=== PATIENT | male | born 1940 | race African-American/Black ===

== ENCOUNTER 2021-01-25 01:46 | Inpatient (IN) ==
[2021-01-25] MEDS ORDERED: ONDANSETRON 4 MG/2 ML VIAL IV STA (05:12)
[2021-01-25] MEDS ORDERED: MORPHINE 2 MG/1 ML SYRINGE IV STA (05:12)
[2021-01-25] MEDS ORDERED: SODIUM CHLORIDE 0.9% 1,000 ML IV STA (05:12)
[2021-01-25 06:24] LABS: Basophils % 0.3 % (0.0-0.8); Eosinophils % 0.1 % (0.00-10.9); Immature Granulocytes % 0.3 %; Immature Granulocytes Absolute 0.03 #; Lymphocytes # 0.6 10*3/uL (1.4-4.0); Lymphocytes % 5.2 % (21.2-54.2); Mean Corpuscular HGB Conc 33.3 GM/DL (32-36); Mean Corpuscular Volume 92.8 FL (87-102); Mean Platelet Volume 8.8 FL (9.6-12.0); Monocytes % 6.1 % (1.7-12.7); Platelet Count 249 T/CUMM (130-400); Red Blood Count 4.85 MC/CUMM (3.8-5.5); Red Cell Distribution Width 12.8 % (9.3-17.3); White Blood Count 11.2 T/CUMM (4-12)
[2021-01-25 06:51] LABS: Band Neutrophils 33 % (0-10); Lymphocytes 6 % (20-55); Metamyelocytes 1 %; Platelet Estimate Normal; Segmented Neutrophils 53 % (50-85); Total Cells Counted 100
[2021-01-25 06:52] LABS: Macrocytosis Slight
[2021-01-25 07:01] LABS: Alanine Aminotransferase 20 U/L (16-61); Albumin 3.3 G/DL (3.4-5.0); Alkaline Phosphatase 66 U/L (45-117); Aspartate Amino Transferase 16 U/L (0-37); Blood Urea Nitrogen 12 MG/DL (7-18); Calcium 9.2 MG/DL (8.5-10.1); Carbon Dioxide 28 MMOL/L (21-32); Estimated Glom Filtration Rate 111 ML/MIN; Glucose 140 MG/DL (74-106); Osmolality,Calculated 269.2 MOS/KG (273-304); Potassium 2.8 MMOL/L (3.5-5.1); Sodium 134 MMOL/L (136-145); Total Protein 7.7 G/DL (6.4-8.2)
[2021-01-25 08:30] LABS: Bilirubin,Urine Negative (Negative); Blood, Urine Large mg/dL (Negative); Glucose,Urine (UA) Negative (Negative); Ketones,Urine Negative (Negative); Mucus,Urine Occasional /LPF (Occasional); Nitrite,Urine Negative (Negative); Protein,Urine 30 MG/DL; RBC,Urine 102 /HPF (0-4); Urine Appearance Slightly Hazy (Clear); Urine Color Yellow (Yellow); Urine Specific Gravity 1.042 (1.001-1.035); Urine Urobilinogen < 2.0 EU/DL (<2.0)
[2021-01-25] MEDS ORDERED: GLUCAGON 1 MG VIAL IM PRN (09:21)
[2021-01-25] MEDS ORDERED: ONDANSETRON 4 MG/2 ML VIAL IV PRN (09:21)
[2021-01-25] MEDS ORDERED: ACETAMINOPHEN 325 MG TABLET PO PRN (09:21)
[2021-01-25] MEDS ORDERED: DEXTROSE 50% 25 GM/50 ML SYRINGE IV PRN (09:21)
[2021-01-25] MEDS ORDERED: ZALEPLON 5 MG CAPSULE PO PRN (09:38)
[2021-01-25] MEDS ORDERED: POTASSIUM CHLORIDE RIDER 10 MEQ/100 ML PREMIX IV PRN (09:51)
[2021-01-25] MEDS: SODIUM CHLOR 0.9% KCL 40 MEQ 40 MEQ/1,000 ML BAG IV SCH ×2 (10:48→20:25)
[2021-01-25] MEDS: ENOXAPARIN 40 MG/0.4 ML SYRINGE SUBCUT SCH (10:48)
[2021-01-25] MEDS: hydrALAZINE 20 MG/1 ML VIAL IV PRN (16:13)
[2021-01-25] MEDS: MORPHINE 2 MG/1 ML SYRINGE IV PRN (16:14)
[2021-01-25] MEDS ORDERED: PHENOL 1.4% THROAT SPRAY 177 ML BOTTLE PO PRN (22:26)
[2021-01-26] MEDS: SODIUM CHLOR 0.9% KCL 40 MEQ 40 MEQ/1,000 ML BAG IV SCH ×4 (04:25→21:55)
[2021-01-26 06:40] LABS: Basophils % 0.3 % (0.0-0.8); Eosinophils # 0.1 10*3/uL (0.0-0.87); Hematocrit 45.2 VOL% (42.0-52.0); Hemoglobin 14.6 GM/DL (14.0-18.0); Immature Granulocytes % 0.1 %; Immature Granulocytes Absolute 0.01 #; Lymphocytes # 1.2 10*3/uL (1.4-4.0); Mean Corpuscular HGB Conc 32.3 GM/DL (32-36); Mean Platelet Volume 9.6 FL (9.6-12.0); Monocytes % 14.6 % (1.7-12.7); Platelet Count 222 T/CUMM (130-400); Red Blood Count 4.71 MC/CUMM (3.8-5.5); Red Cell Distribution Width 13.1 % (9.3-17.3); White Blood Count 7.1 T/CUMM (4-12)
[2021-01-26 06:55] LABS: Calcium 8.3 MG/DL (8.5-10.1); Osmolality,Calculated 272.8 MOS/KG (273-304); Potassium 4.3 MMOL/L (3.5-5.1)
[2021-01-26 07:03] LABS: Band Neutrophils 3 % (0-10); Lymphocytes 22 % (20-55); Segmented Neutrophils 62 % (50-85); Total Cells Counted 100
[2021-01-26 07:04] LABS: Hypochromasia Slight
[2021-01-26 07:05] LABS: Macrocytosis Slight; Platelet Estimate Normal
[2021-01-26] MEDS: ENOXAPARIN 40 MG/0.4 ML SYRINGE SUBCUT SCH (10:37)
[2021-01-26] MEDS: hydrALAZINE 20 MG/1 ML VIAL IV PRN (20:46)
[2021-01-26] MEDS: MORPHINE 2 MG/1 ML SYRINGE IV PRN (20:48)
[2021-01-27] MEDS: SODIUM CHLOR 0.9% KCL 40 MEQ 40 MEQ/1,000 ML BAG IV SCH ×3 (05:36→22:00)
[2021-01-27] MEDS: hydrALAZINE 20 MG/1 ML VIAL IV PRN ×2 (05:36→12:51)
[2021-01-27 07:06] LABS: Calcium 8.4 MG/DL (8.5-10.1); Osmolality,Calculated 272.7 MOS/KG (273-304)
[2021-01-27] MEDS ORDERED: fentaNYL 100 MCG/2 ML VIAL ONE ×2 (08:22→09:08)
[2021-01-27] MEDS ORDERED: LACTATED RINGERS 1,000 ML IV SCH (08:30)
[2021-01-27] MEDS ORDERED: ROPIVACAINE 0.5% 30 ML VIAL ONE (08:38)
[2021-01-27] MEDS ORDERED: DEXAMETHASONE 4 MG/1 ML VIAL ONE (08:38)
[2021-01-27] MEDS ORDERED: LIDOCAINE 1% 5 ML VIAL ONE (08:38)
[2021-01-27] MEDS ORDERED: ETOMIDATE 40 MG/20 ML VIAL IV ONE (10:35)
[2021-01-27] MEDS ORDERED: LACTATED RINGERS 1,000 ML IV ONE (10:35)
[2021-01-27] MEDS ORDERED: ONDANSETRON 4 MG/2 ML VIAL ONE (10:35)
[2021-01-27] MEDS ORDERED: ROCURONIUM 50 MG/5 ML VIAL IV ONE (10:35)
[2021-01-27] MEDS ORDERED: PHENYLEPHRINE 1 MG/10 ML SYRINGE IV ONE (10:35)
[2021-01-27] MEDS ORDERED: LIDOCAINE 2% 5 ML VIAL ONE (10:35)
[2021-01-27] MEDS ORDERED: SEVOFLURANE 1 UNIT/15 MINUTE INH ONE ×2 (10:35→11:13)
[2021-01-27] MEDS ORDERED: SUCCINYLCHOLINE 200 MG/10 ML VIAL ONE (10:35)
[2021-01-27] MEDS ORDERED: propofoL 200 MG/20 ML VIAL IV ONE (10:35)
[2021-01-27] MEDS ORDERED: PHENYLEPHRINE 10 MG/1 ML VIAL IV ONE (10:44)
[2021-01-27] MEDS ORDERED: ePHEDrine 50 MG/ML VIAL ONE (10:44)
[2021-01-27] MEDS ORDERED: ALBUMIN 5% 12.5 GM/250 ML VIAL IV ONE (10:56)
[2021-01-27] MEDS ORDERED: SODIUM CHLORIDE 0.9% 250 ML IV ONE (11:13)
[2021-01-27] MEDS ORDERED: GLYCOPYRROLATE 0.4 MG/2 ML VIAL ONE (11:19)
[2021-01-27] MEDS ORDERED: NEOSTIGMINE 10 MG/10 ML VIAL ONE (11:19)
[2021-01-27] MEDS ORDERED: SUGAMMADEX 200 MG/2 ML VIAL IV ONE (11:32)
[2021-01-27] MEDS: ENOXAPARIN 40 MG/0.4 ML SYRINGE SUBCUT SCH (12:51)
[2021-01-27] MEDS: MORPHINE 2 MG/1 ML SYRINGE IV PRN ×3 (13:23→20:13)
[2021-01-28] MEDS: MORPHINE 2 MG/1 ML SYRINGE IV PRN ×3 (00:36→18:09)
[2021-01-28] MEDS: SODIUM CHLOR 0.9% KCL 40 MEQ 40 MEQ/1,000 ML BAG IV SCH ×3 (06:59→22:08)
[2021-01-28] MEDS: ENOXAPARIN 40 MG/0.4 ML SYRINGE SUBCUT SCH (11:59)
[2021-01-28] MEDS: hydrALAZINE 20 MG/1 ML VIAL IV PRN ×2 (12:39→20:45)
[2021-01-28] MEDS: PANTOPRAZOLE 40 MG VIAL IV SCH (20:43)
[2021-01-29 05:43] LABS: Basophils % 0.3 % (0.0-0.8); Eosinophils # 0.1 10*3/uL (0.0-0.87); Eosinophils % 0.6 % (0.00-10.9); Hematocrit 42.2 VOL% (42.0-52.0); Hemoglobin 13.8 GM/DL (14.0-18.0); Immature Granulocytes % 0.8 %; Lymphocytes # 1.5 10*3/uL (1.4-4.0); Lymphocytes % 12.3 % (21.2-54.2); Mean Corpuscular HGB Conc 32.7 GM/DL (32-36); Mean Corpuscular Volume 95.5 FL (87-102); Mean Platelet Volume 8.8 FL (9.6-12.0); Monocytes % 13.9 % (1.7-12.7); Neutrophils % 72.1 % (38.7-73.9); Platelet Count 244 T/CUMM (130-400); Red Blood Count 4.42 MC/CUMM (3.8-5.5); Red Cell Distribution Width 13.4 % (9.3-17.3)
[2021-01-29 05:53] LABS: Calcium 8.5 MG/DL (8.5-10.1); Potassium 4.4 MMOL/L (3.5-5.1)
[2021-01-29] MEDS: SODIUM CHLOR 0.9% KCL 40 MEQ 40 MEQ/1,000 ML BAG IV SCH ×2 (06:08→14:03)
[2021-01-29 06:09] LABS: Band Neutrophils 1 % (0-10); Eosinophils 1 % (0-10); Hypochromasia 1+; Lymphocytes 15 % (20-55); Microcytosis Slight; Segmented Neutrophils 66 % (50-85); Total Cells Counted 100
[2021-01-29 06:10] LABS: Platelet Estimate Normal
[2021-01-29] MEDS: ENOXAPARIN 40 MG/0.4 ML SYRINGE SUBCUT SCH (09:52)
[2021-01-29] MEDS: PANTOPRAZOLE 40 MG VIAL IV SCH ×2 (09:53→21:25)
[2021-01-30] MEDS: SODIUM CHLOR 0.9% KCL 40 MEQ 40 MEQ/1,000 ML BAG IV SCH ×3 (02:46→11:15)
[2021-01-30] MEDS: PANTOPRAZOLE 40 MG VIAL IV SCH ×2 (09:26→21:05)
[2021-01-30] MEDS: ENOXAPARIN 40 MG/0.4 ML SYRINGE SUBCUT SCH (09:27)
[2021-01-30 14:13] LABS: Calcium 8.4 MG/DL (8.5-10.1); Osmolality,Calculated 273.5 MOS/KG (273-304); Potassium 4.3 MMOL/L (3.5-5.1)
[2021-01-30] MEDS: MORPHINE 2 MG/1 ML SYRINGE IV PRN (18:23)
[2021-01-30] MEDS ORDERED: CARBOXYMETHYLCELLULOSE 1% OPH SOLN BOTH EYES PRN (23:59)
[2021-01-31 05:04] LABS: Basophils % 0.4 % (0.0-0.8); Eosinophils # 0.3 10*3/uL (0.0-0.87); Hematocrit 43.1 VOL% (42.0-52.0); Immature Granulocytes % 1.3 %; Immature Granulocytes Absolute 0.14 #; Lymphocytes # 1.3 10*3/uL (1.4-4.0); Lymphocytes % 11.7 % (21.2-54.2); Mean Corpuscular HGB Conc 32.5 GM/DL (32-36); Mean Corpuscular Volume 94.7 FL (87-102); Mean Platelet Volume 8.8 FL (9.6-12.0); Monocytes % 14.2 % (1.7-12.7); Neutrophils % 69.4 % (38.7-73.9); Platelet Count 252 T/CUMM (130-400); Red Blood Count 4.55 MC/CUMM (3.8-5.5); Red Cell Distribution Width 12.9 % (9.3-17.3); White Blood Count 11.2 T/CUMM (4-12)
[2021-01-31] MEDS: MORPHINE 2 MG/1 ML SYRINGE IV PRN ×2 (05:33→20:28)
[2021-01-31] MEDS: SODIUM CHLOR 0.9% KCL 40 MEQ 40 MEQ/1,000 ML BAG IV SCH ×5 (05:36→21:08)
[2021-01-31] MEDS: ENOXAPARIN 40 MG/0.4 ML SYRINGE SUBCUT SCH (09:08)
[2021-01-31] MEDS: PANTOPRAZOLE 40 MG VIAL IV SCH (09:08)
[2021-02-01] MEDS: SODIUM CHLOR 0.9% KCL 40 MEQ 40 MEQ/1,000 ML BAG IV SCH ×2 (05:17→19:06)
[2021-02-01 06:53] LABS: Basophils % 0.4 % (0.0-0.8); Eosinophils # 0.4 10*3/uL (0.0-0.87); Eosinophils % 5.2 % (0.00-10.9); Hematocrit 41.4 VOL% (42.0-52.0); Hemoglobin 13.3 GM/DL (14.0-18.0); Immature Granulocytes % 1.5 %; Immature Granulocytes Absolute 0.12 #; Lymphocytes # 1.2 10*3/uL (1.4-4.0); Lymphocytes % 15.4 % (21.2-54.2); Mean Corpuscular HGB Conc 32.1 GM/DL (32-36); Mean Corpuscular Volume 93.7 FL (87-102); Mean Platelet Volume 9.1 FL (9.6-12.0); Monocytes % 12.8 % (1.7-12.7); Neutrophils % 64.7 % (38.7-73.9); Platelet Count 257 T/CUMM (130-400); Red Blood Count 4.42 MC/CUMM (3.8-5.5); Red Cell Distribution Width 12.7 % (9.3-17.3); White Blood Count 7.9 T/CUMM (4-12)
[2021-02-01 07:13] LABS: Calcium 8.6 MG/DL (8.5-10.1); Osmolality,Calculated 271.7 MOS/KG (273-304); Potassium 4.1 MMOL/L (3.5-5.1)
[2021-02-01] MEDS: PANTOPRAZOLE 40 MG VIAL IV SCH (08:02)
[2021-02-01] MEDS: MORPHINE 2 MG/1 ML SYRINGE IV PRN ×2 (08:05→20:42)
[2021-02-01] MEDS: ENOXAPARIN 40 MG/0.4 ML SYRINGE SUBCUT SCH (09:04)
[2021-02-02 06:12] LABS: Basophils % 0.5 % (0.0-0.8); Eosinophils # 0.4 10*3/uL (0.0-0.87); Eosinophils % 4.9 % (0.00-10.9); Hematocrit 40.7 VOL% (42.0-52.0); Hemoglobin 13.3 GM/DL (14.0-18.0); Immature Granulocytes % 1.5 %; Immature Granulocytes Absolute 0.12 #; Lymphocytes # 1.4 10*3/uL (1.4-4.0); Mean Corpuscular HGB Conc 32.7 GM/DL (32-36); Mean Corpuscular Volume 94.7 FL (87-102); Mean Platelet Volume 8.9 FL (9.6-12.0); Monocytes % 11.5 % (1.7-12.7); Neutrophils % 63.6 % (38.7-73.9); Platelet Count 258 T/CUMM (130-400); Red Cell Distribution Width 12.8 % (9.3-17.3)
[2021-02-02 06:48] LABS: Calcium 9.1 MG/DL (8.5-10.1); Osmolality,Calculated 271.8 MOS/KG (273-304); Potassium 3.7 MMOL/L (3.5-5.1)
[2021-02-02] MEDS: PANTOPRAZOLE 40 MG VIAL IV SCH (09:04)
[2021-02-02] MEDS: ENOXAPARIN 40 MG/0.4 ML SYRINGE SUBCUT SCH (09:04)
[2021-02-02] MEDS ORDERED: POTASSIUM CHLORIDE 20 MEQ TABLET PO ONE (10:30)
[2021-02-02 11:38] VITALS: BP 140/74
== END 2021-02-02 14:05 | disposition home or self-care (01) | DRG 337 ==
LOC: N.ED 01:46 → N.EDINP 09:21 → SUATTDRO 09:21 → N.2E 11:22 → N.3E 01-28 17:59
PROVIDERS: ADMIT Internal Medicine; ATTEND Internal Medicine